=== PATIENT | female | born 1965 | race Caucasian/White ===

== ENCOUNTER 2017-09-22 18:09 | Emergency (ER) | payer OTHER ==
[~2017-09-22] VITALS: Ht 165.1 cm; Wt 62.6 kg
[~2017-09-22 18:09] MED LIST: AMOXICILLIN200 MG PO; BIRTH CONTROL PO; CEFTIN500 MG PO; CYCLOBENZAPRINE; ESTRADIOL0.5 MG PO; FLEXERIL10 MG PO; GABAPENTIN300 MG PO; GABAPENTIN600 MG PO; MEDROL DOSEPAK4 MG PO; MINIVELLE1 EACH TD; MOBIC7.5 MG PO; NAPROSYN250 MG PO; NAPROSYN500 MG PO; NAPROXEN500 MG; NOHOMEMEDS; PERCOCET 5/31 TABLET PO; PROAIR HFA8.5 GM IH; ROBITUSSIN AC,T10 ML PO; SIMVASTATIN20 MG PO; TRAMADOL HCL50 MG; ULTRAM50 MG PO; ZYRTEC10 M3 PO
[2017-09-22 18:50] LABS: HEMATOCRIT 44.1 % (36.0-46.0); HEMOGLOBIN 14.4 G/DL (11.9-15.5); MCH 28.9 PG (29.0-34.0); MCHC 32.7 G/DL (30.0-36.0); MCV 88.4 FL (83-99); RBC DIS.WIDTH-CV 12.7 % (11.8-14.6); RBC DIS.WIDTH-SD 41.1 % (39-53); RED BLOOD COUNT 4.99 M/uL (3.80-5.20); WHITE BLOOD COUNT 13.2 K/uL (4.1-10.2)
[2017-09-22 19:01] LABS: CHLORIDE 107 mEq/L (99-109); POTASSIUM 3.4 mEq/L (3.7-5.4); SODIUM 142 mEq/L (136-147)
[2017-09-22 19:02] LABS: GLUCOSE 143 mg/dL (70-99)
[2017-09-22 19:06] LABS: CREATININE 0.8 mg/dL (0.6-1.3); GFR ESTIMATE (CALCULATED) > 59 mL/min/
[2017-09-22 19:07] LABS: UREA NITROGEN (BUN) 9 mg/dL (9-23)
[2017-09-22 19:33] LABS: PLAT.SUFFICIENCY ADEQUATE; PLATELET COUNT 271 K/uL (156-360)
[2017-09-22] MEDS ORDERED: MOTRIN800 MG PO (20:11)
[2017-09-22] MEDS ORDERED: NORCO 5/3251 TABLET PO (20:11)
[2017-09-22 20:33] VITALS: BP 147/87
[2017-09-23 10:17] LABS: HEMOGLOBIN A1c (GLYCOHEMOGLOB) 5.8 % (Below 5.7)
== END 2017-09-22 20:34 | disposition home or self-care (01) ==
LOC: EME 18:09
PROVIDERS: Physician Assistant
DX: S29.011A Strain of muscle and tendon of front wall of thorax, initial encounter (principal); J20.9 Acute bronchitis, unspecified; X50.9XXA Other and unspecified overexertion or strenuous movements or postures, initial encounter
CPT/HCPCS: 80048; 81003; 83036; 85027; 99281; 99284

== ENCOUNTER 2018-03-07 07:14 | Emergency (ER) | payer OTHER ==
[~2018-03-07] VITALS: Ht 165.1 cm; Wt 58.7 kg
[~2018-03-07 07:14] MED LIST changes: +MOTRIN800 MG PO; +NORCO 5/3251 TABLET PO
[2018-03-07] MEDS ORDERED: MOTRIN800 MG PO (08:29)
[2018-03-07 09:14] VITALS: BP 159/90
== END 2018-03-07 09:14 | disposition home or self-care (01) ==
LOC: EME 07:14
DX: S50.01XA Contusion of right elbow, initial encounter (principal); W22.09XA Striking against other stationary object, initial encounter
CPT/HCPCS: 73080; 99281; 99284